=== PATIENT | female | born 1965 | race American Indian/Alaskan Native ===

== ENCOUNTER 2018-07-14 13:46 | Outpatient (CLI) | payer BC ==
--- NOTE | 2018-07-15 13:15 | Mammography Report ---
BILATERAL DIGITAL SCREENING MAMMOGRAM with CAD: 07/14/18 13:46:00 CLINICAL: Routine screening. COMPARISON:02/08/16 FINDINGS: The breasts are heterogeneously dense, which may obscure small masses. No mass, architectural distortion or suspicious calcifications. IMPRESSION: No mammographic evidence of malignancy. BI-RADS CATEGORY: 1 - - Negative RECOMMENDATION: Routine mammographic screening in one year. COMMENT: Patient follow-up letters are generated by our [employer] application.
== END 2018-07-14 13:47 | disposition home or self-care (01) ==
LOC: SPVWC 13:46
PROVIDERS: ATTEND Family Medicine Adult Medicine
DX: Z12.31 Encounter for screening mammogram for malignant neoplasm of breast (principal)
CPT/HCPCS: 77067

== ENCOUNTER 2019-08-07 10:33 | Outpatient (CLI) | payer BC ==
--- NOTE | 2019-08-12 14:14 | Mammography Report ---
DIGITAL SCREENING MAMMOGRAM WITH CAD, 08/07/2019 INDICATION: Routine screening mammography. TECHNIQUE: Digital bilateral 2D mammography was obtained in the craniocaudal and mediolateral obliq ue projections. This examination was interpreted with the benefit of Computer-Aided Detection analysi s. COMPARISON: 07/14/2018 FINDINGS: Breast Density: The breasts are heterogeneously dense, which may obscure small masses. There is no evidence of dominant mass, suspicious calcifications or architectural distortion in eithe r breast. IMPRESSION: No mammographic evidence of malignancy. Follow up recommendation: Routine yearly BI-RADS Category 1: Negative. A "normal" or negative report should not discourage follow up or biopsy of a clinically significant f inding. A written summary of these findings will be mailed to the patient. The patient will be entered into a mammography reporting system which will generate a reminder letter for the patient's next appointmen t at the appropriate interval. The [employer] recommends yearly mammograms starting at age 40 and continuing as l baeba as a woman is in good health. Breast MRI is recommended for women with an approximate 20-25% or greater lifetime risk of breast cancer, including women with a strong family history of breast or ova odalis cancer or who have been treated for Hodgkin's disease. Signer Name: Bryant Coker MD Signed: 08/12/2019 2:10 PM Workstation Name: [id number]
== END 2019-08-07 10:34 | disposition home or self-care (01) ==
LOC: SPVWC 10:33
PROVIDERS: ATTEND Family Medicine Adult Medicine
DX: Z12.31 Encounter for screening mammogram for malignant neoplasm of breast (principal)
CPT/HCPCS: 77067

== ENCOUNTER 2020-07-06 08:14 | Outpatient (CLI) | payer BC ==
--- NOTE | 2020-07-06 11:10 | Vascular Lab Report ---
DUPLEX DOPPLER LOWER EXTREMITY VEINS, RIGHT INDICATION: HEADACHE,RIGHT KNEE PAIN,RIGHT CALF PAIN. TECHNIQUE: Duplex doppler imaging was performed through the veins of the right lower extremity using venous compression and other maneuvers. COMPARISON: No relevant prior imaging study available. FINDINGS: Right Common femoral vein: Negative. Right Superficial femoral vein: Negative. Right Popliteal vein: Negative. Right Calf veins: Negative. Additional findings: Moderate right knee effusion is noted. IMPRESSION: No sonographic evidence for DVT in the right lower extremity. Right knee effusion. Signer Name: Jacoby Guillory Jr, MD Signed: 07/06/2020 11:05 AM Workstation Name: [id number]
--- NOTE | 2020-07-06 11:14 | Vascular Lab Report ---
DUPLEX DOPPLER LOWER EXTREMITY ARTERIAL, RIGHT INDICATION: HEADACHE,RIGHT KNEE PAIN,RIGHT CALF PAIN. TECHNIQUE: Arterial duplex examination of both lower extremities performed using B-mode, color flow and spectral Doppler assessment. FINDINGS: RIGHT: Common Femoral Artery: PSV 127 cm/sec. Triphasic waveform. Proximal SFA: PSV 121 cm/sec. Triphasic waveform. Mid SFA: PSV 106 cm/sec. Triphasic waveform. Distal SFA: PSV 74 cm/sec. Triphasic waveform. Popliteal artery: PSV 63 cm/sec. Triphasic waveform. Posterior tibial artery: PSV 38 cm/sec. Biphasic waveform. Dorsalis Pedis Artery: PSV 72 cm/sec. Biphasic waveform. IMPRESSION: Right lower extremity arterial structures are patent with multiphasic waveforms. Doppler Waveform: * Triphasic is normal. * Biphasic is abnormal if clear transition from triphasic signal along vascular tree. * Monophasic is abnormal. Signer Name: Jacoby Guillory Jr, MD Signed: 07/06/2020 11:09 AM Workstation Name: [id number]
== END 2020-07-06 08:15 | disposition home or self-care (01) ==
LOC: VAS 08:14
PROVIDERS: ATTEND Family Medicine Adult Medicine
DX: M79.661 Pain in right lower leg (principal); M25.561 Pain in right knee; M79.12 Myalgia of auxiliary muscles, head and neck

== ENCOUNTER 2020-07-14 10:41 | Outpatient (CLI) | payer BC ==
--- NOTE | 2020-07-14 16:34 | Magnetic Resonance Report ---
NONENHANCED MR SCAN OF THE BRAIN: INDICATION / CLINICAL INFORMATION: MAIN. Pain in the lower extremity TECHNIQUE: Multiplanar, multisequence MR images of the brain obtained. COMPARISON: None available. FINDINGS: BRAIN / INTRACRANIAL CONTENTS: No acute ischemia, acute hemorrhage, mass effect, midline shift, or hy drocephalus. No chronic infarct or atrophy. Few scattered deep hemispheric white matter lesions (Shantal ekas 0) probably due to chronic small vessel disease CRANIOCERVICAL JUNCTION: No significant abnormality. VASCULAR FLOW-VOIDS: No significant abnormality. ORBITS: No significant abnormality of visualized orbits. SINUSES / MASTOIDS: Mucosal disease in the ethmoid air cells bilaterally more on the left side and in the right frontal sinus; mucosal thickening in the left sphenoid sinus ADDITIONAL FINDINGS: Ductal system in the parotid glands appear prominent bilaterally; is there histo ry of Sjogren's syndrome IMPRESSION: No acute focal parenchymal lesion in the brain Signer Name: Edwin Penaloza MD Signed: 07/14/2020 4:29 PM Workstation Name: [id number]
--- NOTE | 2020-07-14 16:38 | Magnetic Resonance Report ---
MRI RIGHT KNEE WITHOUT CONTRAST INDICATION / CLINICAL INFORMATION: Right knee and calf pain. TECHNIQUE: Multiplanar, multisequence MR images were obtained. No contrast used. COMPARISON: None available. FINDINGS: ACL: No significant abnormality. PCL: No significant abnormality. DISTAL QUADRICEPS TENDON: No significant abnormality. PATELLAR TENDON: There is mild proximal patellar tendinosis without tear. MEDIAL MENISCUS: Abnormal intrasubstance signal throughout the body and posterior horn of the medial meniscus without evidence of discrete tear. There is partial extrusion of the medial meniscus body. LATERAL MENISCUS: No significant abnormality. POSTEROLATERAL CORNER: No significant abnormality. MCL: No significant abnormality. LCL: There is thickening of the proximal LCL compatible with a chronic sprain. DISTAL IT BAND: No significant abnormality. PATELLOFEMORAL ALIGNMENT: No significant abnormality. ARTICULAR CARTILAGE: Mild medial and patellofemoral compartment chondrosis. JOINT SPACE: Moderate sized joint effusion with synovitis. No significant popliteal cyst. No intra-ar ticular bodies. BONES: No significant bone marrow edema. No fracture. No osseous lesion. SOFT TISSUES: No significant abnormality. ADDITIONAL FINDINGS: None. IMPRESSION: 1. Intrasubstance degenerative signal within the body and posterior horn of the medial meniscus witho ut discrete tear. 2. 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 3. Moderate-sized joint effusion with synovitis. 4. Chronic sprain of the LCL. Report dictated by: Anthony Cheema MD Report dictated on: 07/14/2020 2:19 PM I have reviewed the images, agree with this report, and edited this report as needed. Signer Name: Corine Gomez MD Signed: 07/14/2020 4:33 PM Workstation Name: [id number]
== END 2020-07-14 10:42 | disposition home or self-care (01) ==
LOC: MRI 10:41
PROVIDERS: ATTEND Family Medicine Adult Medicine
DX: M25.461 Effusion, right knee (principal); M17.11 Unilateral primary osteoarthritis, right knee; M65.88 Other synovitis and tenosynovitis, other site; R51.9 Headache, unspecified
CPT/HCPCS: 70551; 73721